=== PATIENT | female | born 1985 | race Two or more races ===

== ENCOUNTER 2017-12-14 19:30 | Inpatient (IN) | payer MEDICAID ==
[~2017-12-14] VITALS: Ht 162.6 cm; Wt 52.2 kg
--- NOTE | 2017-12-14 19:48 | NUR ---
Dr. Fitzgerald at bedside for MSE.
[2017-12-14 20:22] LABS: BASOPHILS # (AUTO) 0.1 K/uL (0.0-8.0); BASOPHILS % (AUTO) 1.4 % (0.0-2.0); EOSINOPHILS # (AUTO) 0.1 K/uL (0.0-0.7); EOSINOPHILS % (AUTO) 1.4 % (0.0-7.0); HEMATOCRIT 40.4 % (31.2-41.9); HEMOGLOBIN 13.9 g/dL (10.9-14.3); LYMPHOCYTES # (AUTO) 3.5 K/uL (20.0-40.0); LYMPHOCYTES % (AUTO) 36.7 % (20.5-51.5); MEAN CORPUSCULAR HEMOGLOBIN 29.9 uug (24.7-32.8); MEAN CORPUSCULAR HGB CONC 34 g/dL (32.3-35.6); MEAN CORPUSCULAR VOLUME 86.9 fL (75.5-95.3); MONOCYTES # (AUTO) 0.4 K/uL (2.0-10.0); MONOCYTES % (AUTO) 3.7 % (0.0-11.0); NEUTROPHILS # (AUTO) 5.5 K/uL (1.8-8.9); NEUTROPHILS % (AUTO) 56.8 % (38.5-71.5); PLATELET COUNT (AUTO) 333 K/uL (179-408); RED BLOOD CELL COUNT(AUTO) 4.65 MIL/uL (3.63-4.92); WHITE BLOOD COUNT (AUTO) 9.6 K/uL (3.8-11.8)
[2017-12-14 20:29] LABS: CREATININE 0.9 mg/dL (0.6-1.3)
[2017-12-14 20:35] LABS: BILIRUBIN,DIRECT 0.1 mg/dL (0.0-0.2); BILIRUBIN,TOTAL 0.3 mg/dL (0.2-1.0); TOTAL PROTEIN, SERUM 8.3 g/dL (6.4-8.2)
--- NOTE | 2017-12-14 20:37 | NUR ---
Ultrasound at bedside.
[2017-12-14 20:42] LABS: *BILIRUBIN,URIN NEGATIVE (NEGATIVE); *BLOOD, URINE Trace-intact (NEGATIVE); *CLARITY,URINE CLEAR (CLEAR); *COLOR,URINE YELLOW (YELLOW); *KETONES,URINE NEGATIVE (NEGATIVE); *PROTEIN,URINE NEGATIVE (NEGATIVE); *UROBILINOGEN,URINE 0.2 E.U./dl (NORMAL); LEUKOCYTE ESTERASE ,URINE NEGATIVE (NEGATIVE); NITRITE, URINE NEGATIVE (NEGATIVE); PH,URINE 6.5 (5.0-8.0); UGLUCOSE NEGATIVE (NEGATIVE)
[2017-12-14 20:46] LABS: BACTERIA,URINE FEW /HPF (NONE SEEN); SQUAMOUS EPITHELIAL CELL,UR MODERATE /HPF (NONE SEEN); WBC,URINE 0-3 /HPF (0-3)
--- NOTE | 2017-12-14 21:05 | NUR ---
Pt out of ER for CT.
--- NOTE | 2017-12-14 21:18 | NUR ---
Pt back to ER from CT.
--- NOTE | 2017-12-14 22:40 | NUR ---
Dr. Fitzgerald on panel call with Dr. Leone.
[2017-12-14] MEDS ORDERED: IV NS 1000 ML 1,000 ML IV PRN (22:46)
--- NOTE | 2017-12-14 22:55 | NUR ---
Report given to Ocho[facility]ULLIV[facility].
[2017-12-14] MEDS ORDERED: MAGNESIUM HYDROXIDE 30 ML LIQUID UDC PO PRN (23:00)
[2017-12-14] MEDS ORDERED: ACETAMINOPHEN 325 MG TABLET PO PRN (23:00)
[2017-12-14] MEDS ORDERED: Z GUARD REMEDY PASTE 57 GM TUBE TOP PRN (23:00)
[2017-12-14] MEDS ORDERED: MORPHINE SULFATE 4 MG/1 ML DISP.SYRIN IV PRN (23:00)
[2017-12-14] MEDS ORDERED: ONDANSETRON 4 MG/2 ML VIAL IV PRN (23:00)
--- NOTE | 2017-12-14 23:15 | NUR ---
Received pt in unit via jackie under care of Vasu ARANA. Pt AAO x 4 and complaining of intermittent abdominal pain on RLQ, usually triggered after eating or with pressure. Pertinent assessments done. No s/s of acute distress noted at this time. Pt made aware of plan of care. Unit orientation provided. Safe environment implemented. Call light within reach. Will continue to monitor.
[2017-12-14 23:21] VITALS: BP 130/72
[2017-12-15 04:35] VITALS: BP 99/45
[2017-12-15 06:08] LABS: BASOPHILS # (AUTO) 0.1 K/uL (0.0-8.0); BASOPHILS % (AUTO) 1.4 % (0.0-2.0); EOSINOPHILS # (AUTO) 0.2 K/uL (0.0-0.7); HEMATOCRIT 36.8 % (31.2-41.9); HEMOGLOBIN 12.6 g/dL (10.9-14.3); LYMPHOCYTES # (AUTO) 3.5 K/uL (20.0-40.0); LYMPHOCYTES % (AUTO) 43.1 % (20.5-51.5); MEAN CORPUSCULAR HEMOGLOBIN 29.4 uug (24.7-32.8); MEAN CORPUSCULAR HGB CONC 34 g/dL (32.3-35.6); MEAN CORPUSCULAR VOLUME 85.6 fL (75.5-95.3); MONOCYTES # (AUTO) 0.5 K/uL (2.0-10.0); NEUTROPHILS # (AUTO) 3.9 K/uL (1.8-8.9); NEUTROPHILS % (AUTO) 47.5 % (38.5-71.5); PLATELET COUNT (AUTO) 303 K/uL (179-408); WHITE BLOOD COUNT (AUTO) 8.1 K/uL (3.8-11.8)
[2017-12-15 06:29] LABS: CREATININE 0.8 mg/dL (0.6-1.3); MAGNESIUM 1.9 mg/dL (1.8-2.4); PHOSPHOROUS 3.8 mg/dL (2.5-4.9); POTASSIUM 3.9 mmol/L (3.5-5.1)
[2017-12-15 06:34] LABS: THYROID STIMULATING HORMONE 1.894 mIU/mL (0.358-3.740)
--- NOTE | 2017-12-15 06:41 | NUR ---
Kept NPO. Pt aware of plan of care and need for stool OB. Safe environment implemented at all times. Call light within reach.
[2017-12-15] MEDS: PANTOPRAZOLE SODIUM 40 MG VIAL IV SCH ×2 (08:40→17:15)
[2017-12-15 11:50] VITALS: BP 94/53
[2017-12-15] MEDS ORDERED: MAGNESIUM HYDROXIDE 30 ML LIQUID UDC PO ONE (13:00)
[2017-12-15] MEDS ORDERED: METRONIDAZOLE 500 MG TABLET PO SCH (14:00)
[2017-12-15] MEDS ORDERED: FLEET ENEMA 133 ML BOTTLE RC ONE (14:15)
[2017-12-15] MEDS ORDERED: MIRALAX 17 GM POWD.PACK PO ONE (14:15)
[2017-12-15 15:20] VITALS: BP 93/56
[2017-12-15] MEDS ORDERED: MESALAMINE 500 MG CAPSULE.SA PO SCH (17:00)
--- NOTE | 2017-12-15 18:00 | NUR ---
Patient reported that she wanted to leave AMA, contacted Jaden GALLO. ECONOMICS CONSULTANT spoke with patient in detail and agreed to discharge with prescriptions after Blood Draw. Patient did not wait for discharge paperwork. Patient given instructions to follow up with multispecialty clinic, and IV was removed.
[2017-12-16] MEDS ORDERED: PANTOPRAZOLE SODIUM 40 MG VIAL IV SCH (07:00)
== END 2017-12-15 18:00 | disposition home or self-care (01) | DRG 245 ==
LOC: ER 19:32 → MED 22:57
PROVIDERS: ADMIT Hospitalist; ATTEND Hospitalist
DX: K50.00 Crohn's disease of small intestine without complications (principal); K92.0 Hematemesis; K56.7 Ileus, unspecified; K57.31 Diverticulosis of large intestine without perforation or abscess with bleeding; N20.0 Calculus of kidney; Z80.3 Family history of malignant neoplasm of breast; K58.1 Irritable bowel syndrome with constipation; A09 Infectious gastroenteritis and colitis, unspecified; K64.9 Unspecified hemorrhoids
CPT/HCPCS: 36415; 71045; 83520; 83550; 83690; 83735; 84100; 84443; 84550; 84703; 85025; 85651; 85730; 86140; 86256; 86625; 87046; 87177; 93005; A4663; C9113; J7030